=== PATIENT | female | born 1960 | race Caucasian/White ===

== ENCOUNTER 2020-02-01 15:01 | Emergency (ER) | payer BC ==
[~2020-02-01] VITALS: Ht 162.6 cm; Wt 71.0 kg
[2020-02-01 15:45] LABS: BASOPHILS % (AUTO) 0.5 % (0-1); EOSINOPHILS # (AUTO) 0.1 X10'3 (0-0.9); EOSINOPHILS % (AUTO) 1.4 % (0-6); HEMATOCRIT 41.7 % (35.0-45.0); HEMOGLOBIN 14.2 g/dl (12.0-16.0); LYMPHOCYTES # (AUTO) 1.7 X10'3 (1.1-4.8); LYMPHOCYTES % (AUTO) 26.6 % (21-51); MEAN CORPUSCULAR HEMOGLOBIN 29.1 PG (27.0-31.0); MEAN CORPUSCULAR HGB CONC 33.9 g/dL (33.0-36.5); MEAN CORPUSCULAR VOLUME 85.7 FL (78-98); MEAN PLATELET VOLUME 7.5 FL (7.4-10.4); MONOCYTES # (AUTO) 0.4 X10'3 (0-0.9); MONOCYTES % (AUTO) 6.3 % (2-12); NEUTROPHILS # (AUTO) 4.2 X10'3 (1.8-7.7); NEUTROPHILS % (AUTO) 65.2 % (42-75); PLATELET COUNT 275 X10'3 (140-440); RED BLOOD COUNT 4.86 X10'6 (4.20-5.60); RED CELL DISTRIBUTION WIDTH 13.3 % (11.5-14.5); WHITE BLOOD COUNT 6.5 X10'3 (4.5-11.0)
[2020-02-01 16:01] LABS: ALANINE AMINOTRANSFERASE 32 U/L (12-78); ALBUMIN 4.4 G/DL (3.4-5.0); ALBUMIN/GLOBULIN RATIO 1.3 (1.1-1.5); ALKALINE PHOSPHATASE 112 IU/L (46-116); ANION GAP 8 (8-16); ASPARTATE AMINO TRANSFERASE 23 U/L (10-37); BILIRUBIN,TOTAL 0.5 MG/DL (0.1-1.0); BLOOD UREA NITROGEN 8 MG/DL (7-18); BUN/CREATININE RATIO 8.7 (6.6-38.0); CALCIUM 9.4 MG/DL (8.5-10.1); CHLORIDE 104 MMOL/L (99-107); CREATININE 0.92 MG/DL (0.40-0.90); GLUCOSE 128 MG/DL (70-104); LIPASE 90 U/L (73-393); POTASSIUM 3.5 MMOL/L (3.5-5.1); SODIUM 140 MMOL/L (135-145); TOTAL CARBON DIOXIDE 27.8 MMOL/L (24-32); TOTAL PROTEIN 7.7 G/DL (6.4-8.2); eGFR 62 ML/MIN
[2020-02-01 17:48] LABS: CLARITY,URINE SLIGHTLY CLOUDY (Clear); COLOR,URINE STRAW (Yellow); GLUCOSE, URINE NEGATIVE (Neg); KETONES,URINE NEGATIVE (Neg); LEUKOCYTE ESTERASE ,URINE TRACE (Neg); NITRITES, URINE NEGATIVE (Neg); OCCULT BLOOD,URINE NEGATIVE (Neg); PH,URINE 7.5 (4.8-8.0); PROTEIN,URINE NEGATIVE (Neg); UROBILINOGEN,URINE 0.2 E.U/dL (0.2-1.0)
[2020-02-01 17:51] LABS: UA COLLECTION TYPE CLN CATCH MIDSTREAM
[2020-02-01 17:53] LABS: SQUAMOUS EPITHELIAL CELL,UR FEW /LPF (FEW)
[2020-02-01 17:54] LABS: BACTERIA,URINE FEW /HPF (Neg); MUCUS STRANDS FEW /LPF (Neg); WBC,URINE 0-4 /HPF (0-4)
[2020-02-01] MEDS ORDERED: ketorolac tromethamine 15mg/ml inj. IV ONE (18:00)
[2020-02-01] MEDS ORDERED: normal saline 1000ML IV soln IVB ONE (18:00)
[2020-02-01] MEDS ORDERED: ondansetron/PF 4mg/2ml inj IV ONE ×2 (18:25→20:20)
[2020-02-01] MEDS ORDERED: morphine 4 MG/ML inj SYRINge IV ONE (18:25)
--- NOTE | 2020-02-01 20:08 | NUR ---
MARTHA MOSLEY UPDATED THAT PT WITH INCREASING PAIN AGAIN, NOW 6 OUT OF 10. PA TO ORDER ADTL PAIN MEDS AND WILL BE IN SHORTLY TO UPDATED PT OF FINDINGS AND ANTICIPATES PT TO DC SHORTLY. PTS AT BEDSIDE.
[2020-02-01] MEDS ORDERED: morphine 2 MG/ML inj. syringe IV ONE (20:10)
--- NOTE | 2020-02-01 21:07 | NUR ---
PT DC READY, PT AND TALKING WITH MARTHA MOSLEY ABOUT DC.
[2020-02-01 21:16] VITALS: BP 147/71
== END 2020-02-01 21:17 | disposition home or self-care (01) ==
LOC: ER 15:02
DX: M54.5 Low back pain (principal); G89.29 Other chronic pain; Z88.6 Allergy status to analgesic agent; Z91.013 Allergy to seafood; Z98.890 Other specified postprocedural states
CPT/HCPCS: 36415; 74176; 80053; 81001; 83690; 85025; 87088; 96361; 96374; 96375; 96376; 99285; J2270; J2405; J7030